=== PATIENT | male | born 1950 | race Native Hawaiian/Other Pacific Islander ===

== ENCOUNTER 2022-07-10 08:40 | Outpatient (CLI) | payer OTHER | END 2022-07-10 19:37 | disposition home or self-care (01) | LOC: CT 08:40 | PROVIDERS: ATTEND Nurse Practitioner Family | DX: E01.0 Iodine-deficiency related diffuse (endemic) goiter (principal); R10.9 Unspecified abdominal pain; R11.0 Nausea; R14.0 Abdominal distension (gaseous) | CPT/HCPCS: 36415; 82565; 84520; Q9963 ==

== ENCOUNTER 2022-07-24 09:04 | Outpatient (CLI) | payer OTHER | END 2022-07-24 20:26 | disposition home or self-care (01) | LOC: RAD 09:04 | PROVIDERS: ATTEND Nurse Practitioner Family | DX: M54.89 Other dorsalgia (principal) ==